=== PATIENT | male | born 1975 | race Two or more races ===

== ENCOUNTER 2019-09-03 21:01 | Emergency (ER) | payer MEDICAID ==
[2019-09-03] MEDS ORDERED: NORMAL SALINE 1000 ML 1,000 ML IV ONE (21:30)
[2019-09-03] MEDS ORDERED: LORAZEPAM INJ 2 MG/1 ML VIAL IV ONE (21:30)
[2019-09-03] MEDS ORDERED: ONDANSETRON HCL INJ/PF 4 MG/2 ML SDV IV ONE (21:35)
[2019-09-03] MEDS ORDERED: ONDANSETRON HCL INJ/PF 4 MG/2 ML SDV ONE (21:35)
[2019-09-03] MEDS ORDERED: DEXTROSE 50%-WATER 25 GM/50 ML DISP.SYRIN IV ONE ×2 (21:35)
[2019-09-03 21:51] LABS: ABSOLUTE EOSINOPHILS # (AUTO) 0.1 10^3/uL (0.0-0.6); ABSOLUTE LYMPHOCYTES (AUTO) 1.8 10^3/uL (0.5-4.7); ABSOLUTE MONOCYTES (AUTO) 0.6 10^3/uL (0.1-1.4); ABSOLUTE NEUT (AUTO) 5.9 10^3/uL (1.7-8.2); BASOPHILS % (AUTO) 0.4 % (0-2); EOSINOPHILS % (AUTO) 1.1 % (0-6); HEMATOCRIT 43.3 % (37.9-51.0); HEMOGLOBIN 15.1 g/dL (13.5-17.0); LYMPHOCYTES % (AUTO) 20.9 % (13-45); MEAN CORPUSCULAR HEMOGLOBIN 29.8 pg (27.0-33.4); MEAN CORPUSCULAR HGB CONC 34.8 g/dL (32.0-36.0); MEAN CORPUSCULAR VOLUME 86 fl (80-97); MONOCYTES % (AUTO) 6.8 % (3-13); PLATELET COUNT 199 10^3/uL (150-450); RED BLOOD COUNT 5.06 10^6/uL (4.35-5.55); SEGMENTED NEUTROPHILS % (AUTO) 70.8 % (42-78); TOTAL CELLS COUNTED % (AUTO) 100 %; WHITE BLOOD COUNT 8.4 10^3/uL (4.0-10.5)
[2019-09-03 22:02] LABS: ALBUMIN 4.7 g/dL (3.5-5.0); ALKALINE PHOSPHATASE 62 U/L (38-126); ANION GAP 11 (5-19); ASPARTATE AMINO TRANSFERASE 43 U/L (17-59); BILIRUBIN,TOTAL 0.7 mg/dL (0.2-1.3); BLOOD UREA NITROGEN 17 mg/dL (7-20); CALCIUM 9.5 mg/dL (8.4-10.2); CARBON DIOXIDE 26 mmol/L (22-30); CHLORIDE 101 mmol/L (98-107); CREATINE KINASE 160 U/L (55-170); GLUCOSE 91 mg/dL (75-110); POTASSIUM 3.9 mmol/L (3.6-5.0); TOTAL PROTEIN 7.7 g/dL (6.3-8.2)
[2019-09-03 22:14] LABS: CREATINE KINASE MB 1.36 ng/mL (<4.55)
[2019-09-03 22:16] LABS: TROPONIN I < 0.012 ng/mL
[2019-09-03 22:20] LABS: INTERNATIONAL RATION (INR) 1.44; PROTHROMBIN TIME 17.7 SEC (11.4-15.4)
--- NOTE | 2019-09-03 22:22 | ER Document Report ---
Entered by SOPHIA BURKS SCRIBE 09/03/19 2143 Acting as scribe for:URMILA DUVAL IV, MD ED General - General Chief Complaint: Chest Pain Stated Complaint: CHEST PAIN Time Seen by Provider: 09/03/19 21:25 Mode of Arrival: Wheelchair Information source: Patient Notes: This 44 year old male patient presents to the ED today with complaints of left- sided chest pain with radiation down his left arm that started x2-3 hours prior to arrival. Patient is Romansh-speaking, so his brother Teoiflo is translating via phone. Brother states that his symptoms initially started with a severe headache that began x30 minutes prior to the chest pain and that he took 500 mg Tylenol BURR SANDER. Patient states that this is the second headache of this severity in the past x4 days. Brother notes that the patient also complained of dizziness and mild nausea, but denies vomiting. He states that the patient denies weakness in his extremities or an unsteady gait, but reports that the patient appeared tired and like he was going to pass out. Denies head injury or fall. He reports that the patient has not had any PO intake due to today being the first day of Ramadan and subsequently, fasting. Patient denies any past medical history or drug allergies and does not take any medications. TRAVEL OUTSIDE OF THE [place] IN LAST 30 DAYS: No - Related Data Allergies/Adverse Reactions: No Known Allergies Allergy (Unverified 08/08/14 13:25) Past Medical History - General Information source: Patient, Relative - Brother - Social History Smoking Status: Never Smoker Cigarette use (# per day): No Chew tobacco use (# tins/day): No Smoking Education Provided: No Lives with: Family Family History: Reviewed & Not Pertinent Patient has suicidal ideation: No Patient has homicidal ideation: No - Medical History Medical History: Negative Surgical Hx: Negative - Immunizations Hx Diphtheria, Pertussis, Tetanus Vaccination: No Review of Systems - Review of Systems Constitutional: See HPI, Other - Lethargy EENT: No symptoms reported Cardiovascular: See HPI, Chest pain, Dizziness, Other - Near-syncope Respiratory: No symptoms reported Gastrointestinal: See HPI, Nausea. denies: Vomiting Genitourinary: No symptoms reported Male Genitourinary: No symptoms reported Musculoskeletal: No symptoms reported Skin: No symptoms reported Hematologic/Lymphatic: No symptoms reported Neurological/Psychological: See HPI, Headaches. denies: Weakness - Extremities, Gait changes -: Yes All other systems reviewed and negative Physical Exam - Vital signs Vitals: Temp Pulse Resp BP Pulse Ox 98.8 F 86 16 182/97 H 94 09/03/19 21:09 09/03/19 21:09 09/03/19 21:09 09/03/19 21:09 09/03/19 21:09 Interpretation: Hypertensive - General General appearance: Alert, Anxious, Other - Appreciated some tremulousness in extremites after fluids started - HEENT Head: Normocephalic, Atraumatic Eyes: Normal Pupils: PERRL - Respiratory Respiratory status: No respiratory distress Chest status: Nontender Breath sounds: Normal Chest palpation: Normal - Cardiovascular Rhythm: Regular, Tachycardia Heart sounds: Normal auscultation Murmur: No Friction rub: No Gallop: None auscultated - Abdominal Inspection: Normal Distension: No distension Bowel sounds: Normal Tenderness: Nontender - Abdomen soft Organomegaly: No organomegaly - Back Back: Normal, Nontender - Extremities General upper extremity: Normal inspection General lower extremity: Normal inspection - Neurological Neuro grossly intact: Yes - No focal neurological deficits - Psychological Associated symptoms: Anxious - Skin Skin Temperature: Warm Skin Moisture: Diaphoretic Skin Color: Normal Course - Re-evaluation Re-evalutation: 09/04/19 00:41 Results of ED MSE discussed with patient and patient's brother via phone. All questions were answered prior to discharge. Given the negative findings on the work-up in the emergency department and the patient's just starting fasting today for , this MD feels that the patient's symptoms are most likely related to fasting. A more gradual approach to adjusting to fasting for the month of was discussed with the patient and the patient's brother and they plan to take a more graduated approach. Emergency signs and symptoms, re asons to return to the emergency department discussed with patient and patient's brother. - Vital Signs Vital signs: Temp Pulse Resp BP Pulse Ox 98.8 F 86 15 142/97 H 97 09/03/19 21:11 09/03/19 21:09 09/04/19 00:01 09/04/19 00:00 09/04/19 00:01 - Laboratory Result Diagrams: 09/03/19 21:32 09/03/19 21:32 Laboratory results interpreted by me: 09/03/19 09/03/19 21:32 21:32 PT 17.7 H ALT 63 H - Diagnostic Test Radiology reviewed: Reports reviewed - EKG Interpretation by Me Additional EKG results interpreted by me: 09/04/19 00:46 EKG obtained on 09/03/2019 at 2104 hrs. was interpreted by this MD. Findings: Normal sinus rhythm, rate 92, P waves proceed QRS complexes, incomplete right bundle branch block present, no obvious patterns of ST elevation or depression are present to suggest acute myocardial ischemia or infarction. Impression: Normal sinus rhythm with incomplete right bundle branch block and nonspecific ST segments. Discharge - Discharge Clinical Impression: Has jew beliefs involving fasting Headache Qualifiers: Headache type: unspecified Headache chronicity pattern: acute headache Intractability: not intractable Qualified Code(s): R51 - Headache Chest pain Qualifiers: Chest pain type: unspecified Qualified Code(s): R07.9 - Chest pain, unspecified Condition: Good Disposition: HOME, SELF-CARE Additional Instructions: Return to the Emergency Department without delay if any worse. HOME CARE INSTRUCTIONS & INFORMATION: Thank you for choosing us for your medical needs. We hope you're satisfied with the care you received. After you leave, you must properly care for your problem and, at the same time, observe its progress. Any condition can change. Some illnesses can change rapidly over hours or days. If your condition worsens, return to the Emergency Department or see your physician promptly. ABOUT YOUR X-RAYS AND EKG'S: If you had an EKG or X-rays taken, they have been read by the Emergency Physician. The X-rays and EKG's will also be read by a Radiologist or [facility] within 24 hours. If discrepancies are noted, you will be notified by telephone. Please be certain the ED has a correct telephone number & address where you can be reached. Also, realize that some fractures or abnormalities do not show up on initial X-rays. If your symptoms continue, see your physician. ABOUT YOUR LABORATORY TEST: If you had laboratory tests, the results have been reviewed by the Emergency Physician. Some test results (for example cultures) may not be available for several days. You will be contacted if any test result shows you need additional treatment. Please be certain the ED has a correct telephone number and address where you can be reached. ABOUT YOUR MEDICATIONS: You will receive instructions on how to take your medicine on the prescription label you receive. Additional information may be provided by the Pharmacy. If you have questions afterwards, call the ED for clarification or further instructions. Some prescribed medications may cause drowsiness. Do not perform tasks such as driving a car or operating machinery without consulting your Pharmacist. If you feel you need a refill of pain medication, your condition will need re-evaluation. Please do not call for a refill of any medication. ABOUT YOUR SIGNATURE: Signature of this document acknowledges to followin. Understanding that you received emergency treatment and that you may be released before al medical problems are known or treated. Please be certain the ED has a correct phone number & address where you can be reached. 2. Acknowledgement that you will arrange for follow-up care as recommended. 3. Authorization for the Emergency Physician to provide information to your follow-up Physician in order to maximize your care. AT ANY TIME, IF YOUR SYMPTOMS CHANGE SIGNIFICANTLY OR WORSEN OR YOU DEVELOP NEW SYMPTOMS, RETURN TO THE EMERGENCY DEPARTMENT IMMEDIATELY FOR RE-EVALUATION. OUR GOAL IS TO PROVIDE EXCELLENT MEDICAL CARE! WE HOPE THAT WE HAVE MET YOUR EXPECTATIONS DURING YOUR EMERGENCY DEPARTMENT VISIT AND THAT YOU FEEL YOU HAVE RECEIVED EXCELLENT CARE! Hypoglycemia You have suffered an episode of hypoglycemia (low blood sugar). Typical symptoms of hypoglycemia are shaking, sweating, headache, and confusion. When severe, unconsciousness or seizure may occur. Hypoglycemia occurs when a person taking insulin or diabetes pills has a change in the amount of blood sugar available -- due to exercise, decreased food intake, or alcohol. Should you feel symptoms of hypoglycemia again, immediately take some form of sugar such as sweetened juice. As the reaction subsides, eat a complex carbohydrate such as bread. If possible, check your blood sugar using a chemical strip. If episodes are occurring without obvious explanation, contact your physician for further evaluation. I personally performed the services described in the documentation, reviewed and edited the documentation which was dictated to the scribe in my presence, and it accurately records my words and actions.
[2019-09-03] MEDS ORDERED: MORPHINE SULFATE 10 MG/ML INJ IV ONE ×2 (22:23→22:27)
--- NOTE | 2019-09-03 23:29 | RADIOLOGY REPORT (SQ) ---
INDICATION: headache, ams. COMPARISON: None CORRELATION: None TECHNIQUE: Noncontrast spiral axial CT images were obtained from the skull base to vertex. This exam was performed according to our departmental dose-optimization program, which includes automated exposure control, adjustment of the mA and/or kV according to patient size and/or use of iterative reconstruction techniques. FINDINGS: There is no evidence of acute intracranial hemorrhage, midline shift, mass effect or mass lesion. Kunz-white differentiation is normal. There is no evidence of acute large territory infarct. Ventricles and extracerebral spaces are within normal limits, for age. The visualized paranasal sinuses are grossly clear. The orbits and eyeballs are unremarkable. The mastoid air cells are clear. Skull base and calvarium appear intact. IMPRESSION: No acute intracranial process is identified. Imaging is degraded by patient motion, with resultant artifact. The best possible images were obtained. The cause of the patient's headache and mental status change is not identified on this examination.
--- NOTE | 2019-09-04 00:08 | RADIOLOGY REPORT (SQ) ---
CLINICAL INDICATION: chest pain. TECHNIQUE: A single portable AP view was obtained of the chest at 2254 hours. COMPARISON: July 10, 2014. FINDINGS: The cardiomediastinal silhouette is enlarged and appears larger than prior. The lungs are grossly clear. No evidence of effusion or pneumothorax. The visualized bones are unremarkable. IMPRESSION: No evidence of active intrathoracic disease. Enlarged cardiac silhouette, adverse change from prior
[2019-09-04 01:08] VITALS: BP 148/95
--- NOTE | 2019-09-05 10:20 | EKG REPORT ---
SEVERITY:- ABNORMAL ECG - SINUS RHYTHM INCOMPLETE RBBB AND LAFB : Confirmed by: Jessica Henry 05-Sep-2019 10:20:06
== END 2019-09-04 01:08 | disposition home or self-care (01) ==
LOC: ER 21:01
DX: Z72.4 Inappropriate diet and eating habits (principal); R07.9 Chest pain, unspecified; R51 Headache; F41.8 Other specified anxiety disorders; R00.0 Tachycardia, unspecified
CPT/HCPCS: 93005; 99285; 96361; 96374; 96375; 36415; 82553; 82550; 85025; 85610; 80053; 84484; 71045; 70450; 93010; J3490; J2270; J2060; J2405; J7030

== ENCOUNTER 2019-09-24 22:32 | Emergency (ER) | payer MEDICAID ==
--- NOTE | 2019-09-25 02:05 | RADIOLOGY REPORT (SQ) ---
CLINICAL HISTORY: cough, dyspnea COMPARISON: 09/03/2019. TECHNIQUE: XR CHEST 1 VIEW 09/25/2019 1:09 AM CDT FINDINGS: Cardiac silhouette is normal in size. Lungs are clear without consolidation, atelectasis, mass or edema. There is no pleural effusion. There is no pneumothorax. There are no acute osseous findings. IMPRESSION: Clear lungs.
--- NOTE | 2019-09-25 02:09 | ER Document Report ---
ED General - General Chief Complaint: Shortness Of Breath Stated Complaint: SOB Time Seen by Provider: 09/25/19 00:52 TRAVEL OUTSIDE OF THE [place] IN LAST 30 DAYS: No - HPI Notes: Patient is a 44-year-old male who presents to the emergency department for evaluation of cough, shortness of breath, tightness in chest. He states the symptoms have been going on for about 2 days. He denies any fevers or chills. No sore throat. No nausea or vomiting. He has had constipation, no diarrhea. He has not traveled out of the area. He has no known exposures to coronavirus patients, no significant risk factors. He is concerned, however, about the possibility of COVID-19 given the fact that he is noticed a difference in his sense of smell. - Related Data Allergies/Adverse Reactions: No Known Allergies Allergy (Unverified 08/08/14 13:25) Home Medications: Metoprolol 50mg QHS Past Medical History - General Information source: Patient - Social History Smoking Status: Never Smoker Chew tobacco use (# tins/day): No Frequency of alcohol use: None Drug Abuse: None Family History: Reviewed & Not Pertinent Patient has homicidal ideation: No - Past Medical History Cardiac Medical History: Reports: Hx Hypertension - Immunizations Hx Diphtheria, Pertussis, Tetanus Vaccination: No Review of Systems - Review of Systems Cardiovascular: See HPI Respiratory: See HPI -: Yes All other systems reviewed and negative Physical Exam - Vital signs Vitals: Temp 98.7 F 09/24/19 22:32 - Notes Notes: Vital signs reviewed, please refer to chart. Head is normocephalic, atraumatic. Pupils equal round, reactive to light. Oral mucosa is moist. Pharynx is mildly erythematous but no exudates noted. Uvula is midline. Neck is supple without meningismus. Heart is regular rate and rhythm. Lungs are clear to auscultation bilaterally. Abdomen is soft, nontender, normoactive bowel sounds throughout. Extremities without cyanosis, clubbing. Posterior calves are nontender. Peripheral pulses are equal. Skin is warm and dry. Patient is awake, alert, neurological exam is nonfocal. Course - Re-evaluation Re-evalutation: 09/25/19 02:08 Patient presents to the emergency department for evaluation. He is concerned about the possibility of coronavirus. Chest x-ray is ordered. His symptoms are not consistent with influenza. He is oxygenating well. Awaiting up official read by radiology on chest x-ray, but I do not see any acute process. COVID testing performed. Patient is given information in regards to coronavirus, told to isolate at home, including any close family members or contacts, until given possible negative result. Otherwise I will send him with [facility] Hare to help with coughing, prescription for albuterol inhaler. He is told to take [id number] cough medication as well if needed. Return to the ED with worsening. - Vital Signs Vital signs: Temp Pulse Resp BP Pulse Ox 98.7 F 103 H 20 164/95 H 96 09/25/19 00:05 09/25/19 00:05 09/25/19 00:05 09/25/19 00:05 09/25/19 00:05 - Diagnostic Test Radiology reviewed: Image reviewed, Reports reviewed Radiology results interpreted by me: 09/25/19 02:09 Chest X-Ray 09/25/19 01:09 IMPRESSION: Clear lungs. Discharge - Discharge Clinical Impression: Cough Condition: Stable Disposition: HOME, SELF-CARE Instructions: Cough Suppressant & Expectorant Medications, Upper Respiratory Illness ([facility]) Additional Instructions: Your chest x-ray failed to reveal any signs of pneumonia. We will treat you symptomatically. You have been tested today for COVID-19. Please isolate your self at home. You should be quarantined until you either receive a negative result, or longer if your result is positive. You will be contacted. Return to the emergency department with worsening or new concerning symptoms of any sort, including shortness of breath. If you still do not know your COVID-19 status, please contact the emergency department prior to your arrival. Prescriptions: Albuterol Sulfate [Proair HFA Inhalation Aerosol 8.5 gm MDI] 2 puff IH Q6HP PRN #1 mdi PRN Reason: Benzonatate [Tessalon Perles 100 mg Capsule] 100 mg PO Q8HP PRN #40 capsule PRN Reason:
[2019-09-25 03:16] VITALS: BP 141/86
== END 2019-09-25 03:16 | disposition home or self-care (01) ==
LOC: ER 22:32
DX: Z20.828 Contact with and (suspected) exposure to other viral communicable diseases (principal); R05 Cough; R06.02 Shortness of breath; R07.9 Chest pain, unspecified; K59.00 Constipation, unspecified; I10 Essential (primary) hypertension
CPT/HCPCS: 71045; 87635; 99285

== ENCOUNTER 2020-04-03 15:01 | Emergency (ER) | payer MEDICAID ==
--- NOTE | 2020-04-03 17:19 | ER Document Report ---
ED Medical Screen (RME) - General Chief Complaint: Flank Pain Stated Complaint: RIGHT FLANK PAIN,PAINFUL URINATION Time Seen by Provider: 04/03/20 17:07 Mode of Arrival: Ambulatory Information source: Patient Notes: Patient is a 45-year-old male comes emergency room with 3 complaints. First complaint is that he is constipated he has blood in his stool when he wipes. He also states that he has left-sided chest pain starting about 4 days ago as well and right-sided abdominal pain. Some of the pain does radiate to his back. Patient admits to have a history of hypertension. Denies smoking nausea or vomiting he has had no diarrhea as well. Patient does state he has had an increase stress level. Denies any family history of heart problems patient denies any history of shortness of breath with this. Denies any association with food eating. He has had 1 surgery in the abdomen that has a hernia repair 3 years ago. Patient does state he has recently started an exercise program as well. Physical examination: Patient is a well-nourished well-developed 45-year-old male does not speak much Serbian and were using the japanese interpreter for our translation. Patient does not appear to be in any severe distress. He does appear slightly uncomfortable. Cardiac: Shows a regular rate 72 bpm with a blood pressure 141/77 and a sat of 97%. Lungs: Bilateral breath sounds breath sounds increased clear auscultation. Abdomen: In a sitting position patient has moderate tenderness right upper quadrant to palpation. No periumbilical tenderness elicited. Mild tympany in bilateral upper quadrants noted on examination in the sitting position. Chest exam: Patient has reproducible anterior left-sided chest pain to palpation and also to resistance in all directions.(States he has been doing push-ups and other resistance training the last few weeks) Believe patient is having a abdominal problem that is causing her to have this pain and discomfort. I am going to do the labs at this point time order a gallbladder ultrasound. I have greeted and performed a rapid initial assessment of this patient. A comprehensive ED assessment and evaluation of the patient, analysis of test results and completion of the medical decision making process will be conducted by additional ED providers. Dictation of this chart was performed using voice recognition software; therefore, there may be some unintended grammatical errors. TRAVEL OUTSIDE OF THE [place] IN LAST 30 DAYS: No - Related Data Allergies/Adverse Reactions: No Known Allergies Allergy (Unverified 08/08/14 13:25) Past Medical History - Past Medical History Cardiac Medical History: Reports: Hx Hypertension - Immunizations Hx Diphtheria, Pertussis, Tetanus Vaccination: No Physical Exam - Vital signs Vitals: Temp Pulse Resp BP Pulse Ox 97.8 F 72 21 H 146/77 H 97 04/03/20 15:32 04/03/20 15:32 04/03/20 15:32 04/03/20 15:32 04/03/20 15:32 Course - Vital Signs Vital signs: Temp Pulse Resp BP Pulse Ox 97.8 F 72 21 H 146/77 H 97 04/03/20 15:32 04/03/20 15:32 04/03/20 15:32 04/03/20 15:32 04/03/20 15:32
[2020-04-03 18:05] LABS: ABSOLUTE EOSINOPHILS # (AUTO) 0.2 10^3/uL (0.0-0.6); ABSOLUTE LYMPHOCYTES (AUTO) 2.4 10^3/uL (0.5-4.7); ABSOLUTE MONOCYTES (AUTO) 0.5 10^3/uL (0.1-1.4); ABSOLUTE NEUT (AUTO) 3.7 10^3/uL (1.7-8.2); BASOPHILS % (AUTO) 0.5 % (0-2); EOSINOPHILS % (AUTO) 2.2 % (0-6); HEMATOCRIT 44.3 % (37.9-51.0); HEMOGLOBIN 15.3 g/dL (13.5-17.0); LYMPHOCYTES % (AUTO) 35.3 % (13-45); MEAN CORPUSCULAR HEMOGLOBIN 29.7 pg (27.0-33.4); MEAN CORPUSCULAR HGB CONC 34.4 g/dL (32.0-36.0); MEAN CORPUSCULAR VOLUME 86 fl (80-97); MONOCYTES % (AUTO) 7.8 % (3-13); PLATELET COUNT 222 10^3/uL (150-450); RED BLOOD COUNT 5.13 10^6/uL (4.35-5.55); RED CELL DISTRIBUTION WIDTH 13.1 % (11.5-14.0); SEGMENTED NEUTROPHILS % (AUTO) 54.2 % (42-78); TOTAL CELLS COUNTED % (AUTO) 100 %; WHITE BLOOD COUNT 6.8 10^3/uL (4.0-10.5)
[2020-04-03 18:20] LABS: ALBUMIN 4.6 g/dL (3.5-5.0); ALKALINE PHOSPHATASE 54 U/L (38-126); ANION GAP 9 (5-19); ASPARTATE AMINO TRANSFERASE 35 U/L (17-59); BILIRUBIN,TOTAL 0.4 mg/dL (0.2-1.3); BLOOD UREA NITROGEN 19 mg/dL (7-20); CALCIUM 9.8 mg/dL (8.4-10.2); CARBON DIOXIDE 28 mmol/L (22-30); CHLORIDE 103 mmol/L (98-107); GLUCOSE 90 mg/dL (75-110); POTASSIUM 4.6 mmol/L (3.6-5.0); TOTAL PROTEIN 7.4 g/dL (6.3-8.2)
--- NOTE | 2020-04-03 18:32 | RADIOLOGY REPORT (SQ) ---
EXAM DESCRIPTION: CHEST SINGLE VIEW IMAGES COMPLETED DATE/TIME: 04/03/2020 5:04 pm REASON FOR STUDY: Chest pain COMPARISON: 09/25/2019 EXAM PARAMETERS: NUMBER OF VIEWS: One view. TECHNIQUE: Single frontal radiographic view of the chest acquired. RADIATION DOSE: NA LIMITATIONS: None. FINDINGS: LUNGS AND PLEURA: No opacities, masses or pneumothorax. No pleural effusion. MEDIASTINUM AND HILAR STRUCTURES: No masses. Contour normal. HEART AND VASCULAR STRUCTURES: Heart normal in size. Normal vasculature. BONES: No acute findings. HARDWARE: None in the chest. OTHER: No other significant finding. IMPRESSION: NO ACUTE RADIOGRAPHIC FINDING IN THE CHEST. TECHNICAL DOCUMENTATION: JOB ID: [id number] 2010 [employer]- All Rights Reserved Reading location - IP/workstation name: [email or web address]
--- NOTE | 2020-04-03 18:42 | RADIOLOGY REPORT (SQ) ---
EXAM DESCRIPTION: U/S ABDOMEN LIMITED W/O DOP IMAGES COMPLETED DATE/TIME: 04/03/2020 5:13 pm REASON FOR STUDY: Right upper quad pain. COMPARISON: None. TECHNIQUE: Dynamic and static grayscale images acquired of the abdomen and recorded on PACS. Ashisho jan selected color Doppler and spectral images recorded. LIMITATIONS: None. FINDINGS: PANCREAS: No masses. Visualized pancreatic duct normal caliber. LIVER: The liver is mildly enlarged measuring 20.2 cm. There is diffuse increased echogenicity. No focal hepatic mass. LIVER VASCULATURE: Normal directional flow of the main portal vein and hepatic veins. GALLBLADDER: Gallbladder is contracted. No stones. Normal wall thickness. No pericholecystic fluid. ULTRASOUND-DETECTED MONSALVE'S SIGN: Negative. INTRAHEPATIC DUCTS AND COMMON DUCT: CBD and intrahepatic ducts normal caliber. No filling defects. INFERIOR VENA CAVA: Normal flow. AORTA: Proximal aorta has normal caliber. Mid and distal abdominal aorta are obscured by overlying b owel gas. RIGHT KIDNEY: Normal size. Normal echogenicity. Echogenic shadowing structure at the inferior pole right kidney likely a nonobstructing right renal calculus. No solid or suspicious masses. No hydrone phrosis. No calcifications. PERITONEAL AND RIGHT PLEURAL SPACE: No ascites or effusions. OTHER: No other significant findings. IMPRESSION: 1. Moderate hepatic steatosis. 2. Nonobstructing right renal calculus. No hydronephrosis. TECHNICAL DOCUMENTATION: JOB ID: [id number] 2010 [employer]- All Rights Reserved Reading location - IP/workstation name: [email or web address]
[2020-04-03] MEDS ORDERED: NORMAL SALINE 1000 ML 1,000 ML IV ONE (19:51)
--- NOTE | 2020-04-03 20:10 | ER Document Report ---
ED General - General Chief Complaint: Abdominal Pain Stated Complaint: RIGHT FLANK PAIN,PAINFUL URINATION Time Seen by Provider: 04/03/20 17:07 Primary Care Provider: GIORGIO MCCONNELL MD [Primary Care Provider] - Follow up as needed Mode of Arrival: Ambulatory TRAVEL OUTSIDE OF THE [place] IN LAST 30 DAYS: No - HPI Notes: Chief complaint: Abdominal pain History of present illness: 45-year-old [place] male interviewed through an int erpreter online because he speaks little [place] The patient has 3 complaints. First complaint is that he is constipated he has blood in his stool when he wipes. Second complaint is intermittent nonexertional left-sided chest pain. He has a history of hypertension. He is not diabetic. He is a non-smoker. No history of thromboembolic disease. No hemoptysis, fevers, chills or sputum production. No history of hyperlipidemia. No family history of CAD. Third complaint is intermittent right upper quadrant abdominal pain radiating into his back which is nonexertional. Denies any known history of hepatitis or gallbladder disease. He has been told in the past that he has some fatty inf iltration of the liver previous gallbladder ultrasound done by primary care physician elsewhere. - Related Data Allergies/Adverse Reactions: No Known Allergies Allergy (Unverified 08/08/14 13:25) Past Medical History - General Information source: Patient - Social History Smoking Status: Never Smoker Frequency of alcohol use: None Drug Abuse: None Family History: Reviewed & Not Pertinent Patient has homicidal ideation: No - Past Medical History Cardiac Medical History: Reports: Hx Hypertension Past Surgical History: Reports: Hx Herniorrhaphy - Immunizations Hx Diphtheria, Pertussis, Tetanus Vaccination: No Review of Systems - Review of Systems Notes: Constitutional: Negative for fever. HENT: Negative for sore throat. Eyes: Negative for visual changes. Cardiovascular: As per HPI. Respiratory: Negative for shortness of breath. Gastrointestinal: As per HPI. Genitourinary: Negative for dysuria. Musculoskeletal: Negative for back pain. Skin: Negative for rash. Neurological: Negative for headaches, weakness or numbness. 10 point ROS negative except as marked above and in HPI. Physical Exam - Vital signs Vitals: Temp Pulse Resp BP Pulse Ox 97.8 F 72 21 H 146/77 H 97 04/03/20 15:32 04/03/20 15:32 04/03/20 15:32 04/03/20 15:32 04/03/20 15:32 - Notes Notes: GENERAL: Well-developed well-nourished male approximately stated age appearing in no acute distress. SKIN: Good turgor no rashes. HEAD: Normocephalic atraumatic. EYES: PERRLA. EOMI. Conjunctivae and sclerae clear. EARS: CANALS AND TMS CLEAR. NOSE: CLEAR. MOUTH: Moist mucosa. Good dentition. No stridor or edema. No drooling. NECK: Supple. No masses or thyromegaly. No adenopathy. Carotids 2+ without bruits. No JVD. BACK: Symmetrical without tenderness. CHEST: Respirations unlabored. Breath sounds clear and symmetrical. HEART: Regular rhythm. No murmur gallop or rub. ABDOMEN: Soft nontender without masses, organomegaly or rebound. Bowel sounds normally active. No bruits. GENITALIA: Deferred. EXTREMITIES: No edema. No calf tenderness. Cap refill less than 1.5 seconds. Dorsalis pedis and posterior tibial pulses 3+ and symmetrical. NEUROLOGICAL: GCS 15. Alert and oriented x3. Normal gait. Fluent speech. Cranial nerves II through XII intact. Sensorimotor and cerebellar normal. Normal tone. PSYCHIATRIC: Appropriate affect. Course - Vital Signs Vital signs: Temp Pulse Resp BP Pulse Ox 97.8 F 72 21 H 146/77 H 97 04/03/20 15:32 04/03/20 15:32 04/03/20 15:32 04/03/20 15:32 04/03/20 15:32 - Laboratory Result Diagrams: 04/03/20 17:38 04/03/20 17:38 Laboratory results interpreted by me: 04/03/20 17:38 Urine Protein 30 H Urine Blood MODERATE H Urine Urobilinogen 2.0 H - Diagnostic Test Radiology reviewed: Image reviewed, Reports reviewed Radiology results interpreted by me: 04/03/20 20:10 Abdomen Ultrasound 04/03/20 17:23 IMPRESSION: 1. Moderate hepatic steatosis. 2. Nonobstructing right renal calculus. No hydronephrosis. Chest X-Ray 04/03/20 17:24 IMPRESSION: NO ACUTE RADIOGRAPHIC FINDING IN THE CHEST. - EKG Interpretation by Me Additional EKG results interpreted by me: 04/03/20 20:35 Twelve-lead EKG reviewed by me contemporaneously: 2020. Indication for study: Intermittent chest pain Rhythm: Normal sinus Rate: 63 Intervals: Normal limits QRS axis: -[address]/T wave changes: None Comparison with prior tracing: No significant change compared with prior study of September 03, 2019 Interpretation: Left axis deviation Discharge - Discharge Clinical Impression: Nephrolithiasis Condition: Stable Disposition: HOME, SELF-CARE Additional Instructions: Increase oral fluids. Take prescribed medication. Follow-up with your primary care physician this week. Prescriptions: Ketorolac Tromethamine [Toradol 10 mg Tablet] 10 mg PO Q6HP PRN 10 Days #20 tablet PRN Reason: Referrals: GIORGIO MCCONNELL MD [Primary Care Provider] - Follow up as needed
[2020-04-03 20:22] LABS: APPEARANCE,URINE CLEAR; BILIRUBIN,URINE NEGATIVE (NEGATIVE); COLOR,URINE YELLOW; GLUCOSE, URINE NEGATIVE (NEGATIVE); KETONES,URINE NEGATIVE (NEGATIVE); LEUKOCYTE ESTERASE,URINE NEGATIVE (NEGATIVE); NITRITE,URINE NEGATIVE (NEGATIVE); PROTEIN,URINE 30 mg/dL (NEGATIVE); URINE SPECIFIC GRAVITY 1.025
[2020-04-03 21:14] VITALS: BP 124/83
--- NOTE | 2020-04-04 07:26 | EKG REPORT ---
SEVERITY:- OTHERWISE NORMAL ECG - SINUS RHYTHM LEFT AXIS DEVIATION NONSPECIFIC INTRAVENTRICULAR CONDUCTION DELAY : Confirmed by: Todd Pacheco MD 04-Apr-2020 07:26:30
== END 2020-04-03 21:14 | disposition home or self-care (01) ==
LOC: ER 15:01
DX: N20.0 Calculus of kidney (principal); R30.0 Dysuria; R07.9 Chest pain, unspecified; R10.9 Unspecified abdominal pain
CPT/HCPCS: 36415; 71045; 76705; 80053; 81001; 84484; 85025; 87086; 93005; 93010; 99285